=== PATIENT | female | born 1950 | race Caucasian/White ===

== ENCOUNTER 2016-08-19 22:07 | Inpatient (IN) ==
[2016-08-19] MEDS ORDERED: APRESOLINE IV ONE (22:52)
--- NOTE | 2016-08-19 22:52 | PROVIDER DOCUMENTATION ---
HPI-General Adult - General Chief Complaint: Fall Time Seen by Provider: 08/19/16 22:23 Source: patient Allergies/Adverse Reactions: Patient Allergies Allergy/AdvReac Type Severity Reaction Status Date / Time ketorolac tromethamine * AdvReac ABDOMINAL Verified 11/26/13 18:51 [From Toradol] PAIN Home Medications: Home Medication List Medication Instructions Recorded Confirmed Last Taken Type Lisinopril 40 mg PO DAILY #30 tablet 11/26/13 01/05/14 07/30/16 Rx Lisinopril 40 mg PO DAILY 12/01/13 01/02/14 07/30/16 History Ibuprofen [Motrin] 800 mg PO Q8H PRN PRN #20 tablet 01/02/14 07/30/16 Rx Omeprazole [Prilosec] 40 mg PO DAILY@0700 #20 capsule 01/02/14 07/30/16 Rx Tramadol HCl [Ultram] 50 mg PO Q6H PRN #20 tablet 01/05/14 07/30/16 Rx Diclofenac Na D.r. [Voltaren] 50 mg PO 4XDAY #20 tab 08/19/16 07/30/16 Rx Lisinopril [Zestril] 40 mg PO DAILY #30 tablet 08/19/16 07/30/16 Rx Metformin [Glucophage] 500 mg PO WBREAKFAST #30 tablet 08/19/16 07/30/16 Rx Omeprazole [Prilosec] 20 mg PO DAILY@0700 #30 capsule 08/19/16 07/30/16 Rx - History of Present Illness -Gen Adult Nature of Presenting Problems: 66 year old WF presents with c/o fall secondary to weakness. pt reports she was on the commode, attempted to stand, felt so weak, she was unable, fell striking her forehead on the sink, denies LOC. Pt was evaluated in this ED Yesterday for weakness/fall/hyperglycemia. Pt reports she has DM/HTN but has not taken her meds for nearly 2 years. Review of Systems - Adult - REVIEW OF SYSTEMS - ADULT Constitutional: reports: see nicolas URBINA. denies: chills, fever Eyes: reports: no symptoms reported. denies: discharge, blurred vision, double vision Ears, Nose, Mouth & Throat: reports: no symptoms reported. denies: ear discharge, ear pain, nose pain, loose teeth, throat pain, throat swelling Cardiovascular: reports: no symptoms reported. denies: chest pain, palpitations , syncope Respiratory: reports: no symptoms reported. denies: chronic cough, cough, shortness of breath, wheezing Gastrointestinal: reports: no symptoms reported. denies: abdominal pain, diarrhea, nausea, poor appetite, vomiting Genitourinary: reports: no symptoms reported. denies: dysuria, hematuria, urgency Musculoskeletal: reports: no symptoms reported. denies: bone pain, joint pain, joint swelling, neck pain Integumentary: reports: no symptoms reported. denies: hives, itching, skin sores/ulcer Neurological: reports: see HPI, dizziness/vertigo, headache/migraines, loss of balance, other (weakness). denies: ataxia, numbness, paresthesia, seizure, slurred speech, syncope, tremors Psychiatric: reports: no symptoms reported Endocrine: reports: no symptoms reported Hematologic/Lymphatic: reports: no symptoms reported Allergic/Immunologic: reports: no symptoms reported All Other Systems: Reviewed and Negative Past History - Adult - PAST MEDICAL HISTORY-ADULT Review of Records: reports: Old Records Reviewed, Nursing Assessment Review, Medications Reviewed, Social history reviewed & non-contributory. Major Childhood Illnesses: reports: denies history Cardiovascular: reports: HTN Respiratory: reports: denies history Gastrointestinal: reports: denies history Obstetrical/Gynecological: reports: denies history Genitourinary: reports: denies history Musculoskeletal: reports: arthritis, chronic pain Neurological: reports: denies history Endocrine/Immune: reports: Diabetes Diabetes Type: Type 2 Diabetes controlled by:: PO Meds Other Conditions: reports: denies history - PRIOR SURGERIES/PROCEDURES Surgical/Procedure History: reports: hysterectomy, tonsillectomy, orthopedic ( extremity), appendectomy, back/neck - IMMUNIZATION STATUS Childhood Immunizations: See Nurse Assessment Flu Vaccine: See Nurse Assessment - FAMILY HISTORY Family History: reviewed, not pertinent - SOCIAL HISTORY Smoking: denies, non-smoker Substance Use: none/never Alcohol Use Frequency: never Physical Exam-General - PHYSICAL EXAM-ADULT Initial Vital Signs Reviewed: Yes - CONSTITUTIONAL General Appearance: appears well, alert, no apparent distress, obese, other ( discheveled, poor hygiene, smells of urine/feces). negative: mild distress, moderate distress, severe distress - EYES Eyes: PERRL/EOMI, pink conjunctivae. negative: EOM palsy, photophobia, sclera injected, scleral icterus, subconjunctival hemorrhage - HEAD, EARS, NOSE, MOUTH & THROAT HENMT: normocephalic/atraumatic, moist mucous membranes, normal ENT inspection, TMs normal, pharynx normal - NECK Neck: non-tender, full range of motion, supple, normal inspection. negative: C- spine tenderness, limited range of motion, tender lateral, tender midline - RESPIRATORY Respiratory: chest non-tender, lungs clear, normal breath sounds, no pleuratic chest pain, no respiratory distress, no accessory muscle use. negative: respiratory distress, decreased breath sounds, accessory muscle use, crackles, rales, rhonchi, stridor, wheezing - CARDIOVASCULAR Cardiovascular: normal peripheral pulses, regular rate, rhythm - GASTROINTESTINAL (ABDOMEN) Abdominal Exam: normal bowel sounds, non tender, soft - MUSCULOSKELETAL Back Exam: normal inspection, no CVA tenderness, no vertebral tenderness. negative: CVA tenderness, decreased range of motion, swelling, vertebral tenderness Extremity: normal range of motion, non-tender, normal gait, normal inspection, no pedal edema, no calf tenderness, normal capillary refill. negative: deformity, erythema, swelling, tenderness Peripheral Pulses: radial (R): 3+, radial (L): 3+, dorsalis-pedis (R): 3+, dorsalis-pedis (L): 3+ - SKIN Integumentary: normal color, normal turgor, warm/dry. negative: pallor, petechiae, purpura, rash, swelling, tenderness - NEUROLOGIC Neurologic: grossly normal, no motor/sensory deficits - PSYCHIATRIC Psych/Mental Status: normal mood/affect, normal thought content, normal thought process, oriented x 3 Progress - PLAN OF CARE/RESULTS Progress/Plan/Lab Results: Vital Signs - 8 hr 08/19/16 22:08 Temperature 97.0 F L Pulse Rate 104 H Respiratory Rate 18 Blood Pressure 206/115 O2 Sat by Pulse Oximetry 99 Laboratory Results - last 24 hr 08/19/16 22:09 POC Glucose 412 H Orders Category Date Time Status Orthostatic Vital Signs NOW Care 08/19/16 22:51 Ordered Saline Loc NOW Care 08/19/16 22:49 Ordered CHEST-2 VIEWS [RAD] Stat Exams 08/19/16 22:49 Ordered FACIAL BONES W/O CONTRAST [CT] Stat Exams 08/19/16 22:50 Ordered HEAD/C-SPINE W/O CONTRAST [CT] Stat Exams 08/19/16 22:50 Ordered ACETONE SERUM [CHEM] Stat Lab 08/19/16 22:51 Ordered CBC WITH ELECTRONIC DIFF [HEME] Stat Lab 08/19/16 22:49 Ordered CK PROFILE [SP CHEM] Stat Lab 08/19/16 22:49 Ordered COMPREHENSIVE METABOLIC PANEL [CHEM] Stat Lab 08/19/16 22:49 Ordered MAGNESIUM [CHEM] Stat Lab 08/19/16 22:49 Ordered PRO B-NATRIURETIC PEPTIDE Stat Lab 08/19/16 22:49 Ordered PROTIME WITH INR PL [COAG] Stat Lab 08/19/16 22:[address] [COAG] Stat Lab 08/19/16 22:49 Ordered TROPONIN T Stat Lab 08/19/16 22:49 Ordered UA NIMS W/REFLEX CULT PL [URINALYSIS] Stat Lab 08/19/16 22:51 Ordered Hydralazine [Apresoline] Med 08/19/16 22:52 Once 10 mg IV NOW ONE EKG [EKG] Stat Ther 08/19/16 22:49 Ordered Laboratory Tests 08/19/16 08/19/16 08/19/16 22:09 22:25 23:40 WBC RBC Hgb Hct MCV MCH MCHC RDW Std Deviation Plt Count MPV Immature Gran % (Auto) Neut % (Auto) Lymph % (Auto) Bland % (Auto) Eos % (Auto) Baso % (Auto) Immature Gran # (Auto) Neut # (Auto) Lymph # (Auto) Bland # (Auto) Eos # (Auto) Baso # (Auto) PT INR APTT (Factor Assay) Sodium 133 L Potassium 3.8 Chloride 92 L Carbon Dioxide 25 Anion Gap 16 BUN 13 Creatinine 0.6 Estimated GFR/1.73 m2 > 60 BUN/Creatinine Ratio 22 Glucose 406 H* POC Glucose 412 H Calculated Osmolality 284 Calcium 10.1 Magnesium 1.7 Total Bilirubin 0.20 AST 16 ALT 11 Alkaline Phosphatase 97 Creatine Kinase 112 Troponin T Fsw-A-Sbqegxnsdfk Pept Total Protein 8.0 Albumin 4.6 Globulin 3.0 Albumin/Globulin Ratio 1.0 Urine Source CLEAN CATCH Urine Color YELLOW Urine Clarity CLEAR Urine pH 7.0 Ur Specific [place] 1.005 Urine Protein 2+(100 mg/dL) A Urine Ketones NEGATIVE Urine Blood NEGATIVE Urine Nitrite NEGATIVE Urine Bilirubin NEGATIVE Urine Urobilinogen NORMAL Urine Microscopic RBC <10 Urine WBC NEGATIVE Urine Microscopic WBC <10 Ur Epithelial Cells <10 Urine Bacteria NEGATIVE Urine Glucose 3+(500 mg/dL) A Acetone Level 08/19/16 08/19/16 08/19/16 23:40 23:40 23:40 WBC 10.25 RBC 4.41 Hgb 13.1 Hct 39.9 MCV 90.5 MCH 29.7 MCHC 32.8 L RDW Std Deviation 13.6 Plt Count 257 MPV 11.9 H Immature Gran % (Auto) 0.4 Neut % (Auto) 61.1 Lymph % (Auto) 28.1 Bland % (Auto) 5.9 Eos % (Auto) 3.9 Baso % (Auto) 0.6 Immature Gran # (Auto) 0.04 Neut # (Auto) 6.27 Lymph # (Auto) 2.88 Bland # (Auto) 0.60 H Eos # (Auto) 0.40 Baso # (Auto) 0.06 PT INR APTT (Factor Assay) Sodium Potassium Chloride Carbon Dioxide Anion Gap BUN Creatinine Estimated GFR/1.73 m2 BUN/Creatinine Ratio Glucose POC Glucose Calculated Osmolality Calcium Magnesium Total Bilirubin AST ALT Alkaline Phosphatase Creatine Kinase Troponin T < 0.010 Ugu-Y-Brzhvmdhgbc Pept 215 Total Protein Albumin Globulin Albumin/Globulin Ratio Urine Source Urine Color Urine Clarity Urine pH Ur Specific [place] Urine Protein Urine Ketones Urine Blood Urine Nitrite Urine Bilirubin Urine Urobilinogen Urine Microscopic RBC Urine WBC Urine Microscopic WBC Ur Epithelial Cells Urine Bacteria Urine Glucose Acetone Level 08/19/16 08/19/16 23:40 23:40 WBC RBC Hgb Hct MCV MCH MCHC RDW Std Deviation Plt Count MPV Immature Gran % (Auto) Neut % (Auto) Lymph % (Auto) Bland % (Auto) Eos % (Auto) Baso % (Auto) Immature Gran # (Auto) Neut # (Auto) Lymph # (Auto) Bland # (Auto) Eos # (Auto) Baso # (Auto) PT 12.2 INR 0.87 APTT (Factor Assay) 32.5 Sodium Potassium Chloride Carbon Dioxide Anion Gap BUN Creatinine Estimated GFR/1.73 m2 BUN/Creatinine Ratio Glucose POC Glucose Calculated Osmolality Calcium Magnesium Total Bilirubin AST ALT Alkaline Phosphatase Creatine Kinase Troponin T Ktv-T-Cxzpyabrjsa Pept Total Protein Albumin Globulin Albumin/Globulin Ratio Urine Source Urine Color Urine Clarity Urine pH Ur Specific [place] Urine Protein Urine Ketones Urine Blood Urine Nitrite Urine Bilirubin Urine Urobilinogen Urine Microscopic RBC Urine WBC Urine Microscopic WBC Ur Epithelial Cells Urine Bacteria Urine Glucose Acetone Level NEGATIVE Orders Category Date Time Status Admit - [facility] Routine AdmDCTranf 08/20/16 01:12 Ordered Call Admitting on Arrival AT ADMISSION Care 08/20/16 01:13 Active Neurological Check Q4H Care 08/20/16 01:13 Active Saline Loc NOW Care 08/19/16 22:49 Active Vital Signs Order ORDERED Care 08/20/16 01:12 Active CHEST-2 VIEWS [RAD] Stat Exams 08/19/16 22:49 Taken FACIAL BONES W/O CONTRAST [CT] Stat Exams 08/19/16 22:50 Taken HEAD/C-SPINE W/O CONTRAST [CT] Stat Exams 08/19/16 22:50 Taken A1C HGB W EST AVG GLUCOSE [CHEM] Stat Lab 08/20/16 01:11 Ordered ACETONE SERUM [CHEM] Stat Lab 08/19/16 23:40 Completed ALCOHOL BLOOD Stat Lab 08/20/16 01:10 Ordered BLOOD CULTURE [BLDCUL] Stat Lab 08/20/16 01:11 Uncollected CBC WITH ELECTRONIC DIFF [HEME] Stat Lab 08/19/16 23:40 Completed CK PROFILE [SP CHEM] Stat Lab 08/19/16 23:40 Completed CK PROFILE [SP CHEM] Stat Lab 08/20/16 02:00 Ordered CK PROFILE [SP CHEM] Stat Lab 08/20/16 04:00 Ordered COMPREHENSIVE METABOLIC PANEL [CHEM] Stat Lab 08/19/16 23:40 Completed FREE T4 Stat Lab 08/20/16 01:10 Ordered LACTATE, PLASMA [CHEM] Stat Lab 08/20/16 01:11 Uncollected MAGNESIUM [CHEM] Stat Lab 08/19/16 23:40 Completed PRO B-NATRIURETIC PEPTIDE Stat Lab 08/19/16 23:40 Completed PROTIME WITH INR PL [COAG] Stat Lab 08/19/16 23:[address] [COAG] Stat Lab 08/19/16 23:40 Completed TROPONIN T Stat Lab 08/19/16 23:40 Completed TROPONIN T Stat Lab 08/20/16 02:00 Ordered TROPONIN T Stat Lab 08/20/16 04:00 Ordered TSH Stat Lab 08/20/16 01:10 Ordered UA NIMS W/REFLEX CULT PL [URINALYSIS] Stat Lab 08/19/16 22:25 Completed UDS [URINE DRUG SCREEN PL] Stat Lab 08/20/16 01:04 Ordered VITAMIN B12 Stat Lab 08/20/16 01:10 Ordered 0.9% Sodium Chloride Inj [Ns] 1,000 ml Med 08/20/16 01:05 Active IV 999 mls/hr Acetaminophen [Tylenol] Med 08/20/16 00:31 Discontinued 650 mg PO NOW ONE Hydralazine [Apresoline] Med 08/19/16 22:52 Discontinued 10 mg IV NOW ONE Hydralazine [Apresoline] Med 08/20/16 00:56 Discontinued 10 mg IV NOW ONE Insulin Human Regular [Humulin R] Med 08/20/16 01:05 Discontinued 3 unit IV NOW ONE Telemetry [OM.EQ] Routine Oth 08/20/16 01:12 Active EKG [EKG] Stat Ther 08/19/16 22:49 Draft Transfer/Admit Order [TRANSFER] Routine Transfer 08/20/16 01:15 Ordered Vital Signs - 24 hr 08/19/16 22:08 08/20/16 00:13 Temperature 97.0 F L 98.2 F Pulse Rate 104 H 108 H Respiratory Rate 18 20 Blood Pressure 206/115 194/111 O2 Sat by Pulse Oximetry 99 100 Vital Signs - 24 hr 08/19/16 22:08 08/20/16 00:13 08/20/16 01:40 Temperature 97.0 F L 98.2 F 97.5 F L Pulse Rate 104 H 108 H 104 H Respiratory Rate 18 20 16 Blood Pressure 206/115 194/111 147/92 O2 Sat by Pulse Oximetry 99 100 99 Orders Category Date Time Status Admit - [facility] Routine AdmDCTranf 08/20/16 01:12 Ordered Call Admitting on Arrival AT ADMISSION Care 08/20/16 01:13 Active Neurological Check Q4H Care 08/20/16 01:13 Active Saline Loc NOW Care 08/19/16 22:49 Active Vital Signs Order ORDERED Care 08/20/16 01:12 Active Diabetic Diet Diet 08/20/16 02:13 Ordered Heart Healthy Diet Diet 08/20/16 02:13 Completed CHEST-2 VIEWS [RAD] Stat Exams 08/19/16 22:49 Taken FACIAL BONES W/O CONTRAST [CT] Stat Exams 08/19/16 22:50 Taken HEAD/C-SPINE W/O CONTRAST [CT] Stat Exams 08/19/16 22:50 Taken A1C HGB W EST AVG GLUCOSE [CHEM] Stat Lab 08/20/16 01:40 Completed ACETONE SERUM [CHEM] Stat Lab 08/19/16 23:40 Completed ALCOHOL BLOOD Stat Lab 08/20/16 01:10 Completed BLOOD CULTURE [BLDCUL] Stat Lab 08/20/16 01:11 Ordered CBC WITH ELECTRONIC DIFF [HEME] Stat Lab 08/19/16 23:40 Completed CK PROFILE [SP CHEM] Stat Lab 08/19/16 23:40 Completed CK PROFILE [SP CHEM] Stat Lab 08/20/16 01:40 Received CK PROFILE [SP CHEM] Stat Lab 08/20/16 04:00 Ordered COMPREHENSIVE METABOLIC PANEL [CHEM] Stat Lab 08/19/16 23:40 Completed FREE T4 Stat Lab 08/20/16 01:40 Received LACTATE, PLASMA [CHEM] Stat Lab 08/20/16 01:11 Ordered MAGNESIUM [CHEM] Stat Lab 08/19/16 23:40 Completed PRO B-NATRIURETIC PEPTIDE Stat Lab 08/19/16 23:40 Completed PROTIME WITH INR PL [COAG] Stat Lab 08/19/16 23:[address] [COAG] Stat Lab 08/19/16 23:40 Completed TROPONIN T Stat Lab 08/19/16 23:40 Completed TROPONIN T Stat Lab 08/20/16 01:40 Received TROPONIN T Stat Lab 08/20/16 04:00 Ordered TSH Stat Lab 08/20/16 01:40 Received UA NIMS W/REFLEX CULT PL [URINALYSIS] Stat Lab 08/19/16 22:25 Completed UDS [URINE DRUG SCREEN PL] Stat Lab 08/20/16 01:04 Completed VITAMIN B12 Stat Lab 08/20/16 01:40 Received 0.9% Sodium Chloride Inj [Ns] 1,000 ml Med 08/20/16 01:05 Discontinued IV 999 mls/hr Acetaminophen [Tylenol] Med 08/20/16 00:31 Discontinued 650 mg PO NOW ONE Hydralazine [Apresoline] Med 08/19/16 22:52 Discontinued 10 mg IV NOW ONE Hydralazine [Apresoline] Med 08/20/16 00:56 Discontinued 10 mg IV NOW ONE Insulin Human Regular (Bostic [Humulin R (Bostic)] Med 08/20/16 01:23 Discontinued 1 units .ROUTE .STK-MED ONE Insulin Human Regular [Humulin R] Med 08/20/16 01:05 Discontinued 3 unit IV NOW ONE Telemetry [OM.EQ] Routine Oth 08/20/16 01:12 Active EKG [EKG] Stat Ther 08/19/16 22:49 Draft Transfer/Admit Order [TRANSFER] Routine Transfer 08/20/16 01:15 Completed Laboratory Tests 08/19/16 08/19/16 08/19/16 22:09 22:25 22:25 WBC RBC Hgb Hct MCV MCH MCHC RDW Std Deviation Plt Count MPV Immature Gran % (Auto) Neut % (Auto) Lymph % (Auto) Bland % (Auto) Eos % (Auto) Baso % (Auto) Immature Gran # (Auto) Neut # (Auto) Lymph # (Auto) Bland # (Auto) Eos # (Auto) Baso # (Auto) PT INR APTT (Factor Assay) Sodium Potassium Chloride Carbon Dioxide Anion Gap BUN Creatinine Estimated GFR/1.73 m2 BUN/Creatinine Ratio Glucose POC Glucose 412 H Estimat Average Glucose Hemoglobin A1c Calculated Osmolality Calcium Magnesium Total Bilirubin AST ALT Alkaline Phosphatase Creatine Kinase Troponin T Lbh-C-Jqdcujmiktd Pept Total Protein Albumin Globulin Albumin/Globulin Ratio Urine Source CLEAN CATCH Urine Color YELLOW Urine Clarity CLEAR Urine pH 7.0 Ur Specific [place] 1.005 Urine Protein 2+(100 mg/dL) A Urine Ketones NEGATIVE Urine Blood NEGATIVE Urine Nitrite NEGATIVE Urine Bilirubin NEGATIVE Urine Urobilinogen NORMAL Urine Microscopic RBC <10 Urine WBC NEGATIVE Urine Microscopic WBC <10 Ur Epithelial Cells <10 Urine Bacteria NEGATIVE Urine Glucose 3+(500 mg/dL) A Urine Opiates Screen PRESUMPTIVE POSITIVE A Ur Oxycodone Screen NONE DETECTED Urine Methadone Screen NONE DETECTED Ur Barbituates Screen NONE DETECTED Ur Tricyclics Screen NONE DETECTED Ur Phencyclidine Scrn NONE DETECTED Ur Amphetamines Screen NONE DETECTED U Methamphetamines Scrn NONE DETECTED Urine MDMA Screen NONE DETECTED U Benzodiazepines Scrn PRESUMPTIVE POSITIVE A Urine Cocaine Screen NONE DETECTED U Cannabinoids Screen NONE DETECTED Plasma/Serum Ethyl Alc Acetone Level 08/19/16 08/19/16 08/19/16 23:40 23:40 23:40 WBC RBC Hgb Hct MCV MCH MCHC RDW Std Deviation Plt Count MPV Immature Gran % (Auto) Neut % (Auto) Lymph % (Auto) Bland % (Auto) Eos % (Auto) Baso % (Auto) Immature Gran # (Auto) Neut # (Auto) Lymph # (Auto) Bland # (Auto) Eos # (Auto) Baso # (Auto) PT INR APTT (Factor Assay) Sodium 133 L Potassium 3.8 Chloride 92 L Carbon Dioxide 25 Anion Gap 16 BUN 13 Creatinine 0.6 Estimated GFR/1.73 m2 > 60 BUN/Creatinine Ratio 22 Glucose 406 H* POC Glucose Estimat Average Glucose Hemoglobin A1c Calculated Osmolality 284 Calcium 10.1 Magnesium 1.7 Total Bilirubin 0.20 AST 16 ALT 11 Alkaline Phosphatase 97 Creatine Kinase 112 Troponin T < 0.010 Ltq-Q-Etotbltivme Pept 215 Total Protein 8.0 Albumin 4.6 Globulin 3.0 Albumin/Globulin Ratio 1.0 Urine Source Urine Color Urine Clarity Urine pH Ur Specific [place] Urine Protein Urine Ketones Urine Blood Urine Nitrite Urine Bilirubin Urine Urobilinogen Urine Microscopic RBC Urine WBC Urine Microscopic WBC Ur Epithelial Cells Urine Bacteria Urine Glucose Urine Opiates Screen Ur Oxycodone Screen Urine Methadone Screen Ur Barbituates Screen Ur Tricyclics Screen Ur Phencyclidine Scrn Ur Amphetamines Screen U Methamphetamines Scrn Urine MDMA Screen U Benzodiazepines Scrn Urine Cocaine Screen U Cannabinoids Screen Plasma/Serum Ethyl Alc Acetone Level 08/19/16 08/19/16 08/19/16 23:40 23:40 23:40 WBC 10.25 RBC 4.41 Hgb 13.1 Hct 39.9 MCV 90.5 MCH 29.7 MCHC 32.8 L RDW Std Deviation 13.6 Plt Count 257 MPV 11.9 H Immature Gran % (Auto) 0.4 Neut % (Auto) 61.1 Lymph % (Auto) 28.1 Bland % (Auto) 5.9 Eos % (Auto) 3.9 Baso % (Auto) 0.6 Immature Gran # (Auto) 0.04 Neut # (Auto) 6.27 Lymph # (Auto) 2.88 Bland # (Auto) 0.60 H Eos # (Auto) 0.40 Baso # (Auto) 0.06 PT 12.2 INR 0.87 APTT (Factor Assay) 32.5 Sodium Potassium Chloride Carbon Dioxide Anion Gap BUN Creatinine Estimated GFR/1.73 m2 BUN/Creatinine Ratio Glucose POC Glucose Estimat Average Glucose Hemoglobin A1c Calculated Osmolality Calcium Magnesium Total Bilirubin AST ALT Alkaline Phosphatase Creatine Kinase Troponin T [id number]-Mbvwijcqwfx Pept Total Protein Albumin Globulin Albumin/Globulin Ratio Urine Source Urine Color Urine Clarity Urine pH Ur Specific [place] Urine Protein Urine Ketones Urine Blood Urine Nitrite Urine Bilirubin Urine Urobilinogen Urine Microscopic RBC Urine WBC Urine Microscopic WBC Ur Epithelial Cells Urine Bacteria Urine Glucose Urine Opiates Screen Ur Oxycodone Screen Urine Methadone Screen Ur Barbituates Screen Ur Tricyclics Screen Ur Phencyclidine Scrn Ur Amphetamines Screen U Methamphetamines Scrn Urine MDMA Screen U Benzodiazepines Scrn Urine Cocaine Screen U Cannabinoids Screen Plasma/Serum Ethyl Alc Acetone Level NEGATIVE 08/19/16 08/20/16 23:40 01:40 WBC RBC Hgb Hct MCV MCH MCHC RDW Std Deviation Plt Count MPV Immature Gran % (Auto) Neut % (Auto) Lymph % (Auto) Bland % (Auto) Eos % (Auto) Baso % (Auto) Immature Gran # (Auto) Neut # (Auto) Lymph # (Auto) Bland # (Auto) Eos # (Auto) Baso # (Auto) PT INR APTT (Factor Assay) Sodium Potassium Chloride Carbon Dioxide Anion Gap BUN Creatinine Estimated GFR/1.73 m2 BUN/Creatinine Ratio Glucose POC Glucose Estimat Average Glucose 217 Hemoglobin A1c 9.2 H Calculated Osmolality Calcium Magnesium Total Bilirubin AST ALT Alkaline Phosphatase Creatine Kinase Troponin T Fph-K-Quisnrxygsd Pept Total Protein Albumin Globulin Albumin/Globulin Ratio Urine Source Urine Color Urine Clarity Urine pH Ur Specific [place] Urine Protein Urine Ketones Urine Blood Urine Nitrite Urine Bilirubin Urine Urobilinogen Urine Microscopic RBC Urine WBC Urine Microscopic WBC Ur Epithelial Cells Urine Bacteria Urine Glucose Urine Opiates Screen Ur Oxycodone Screen Urine Methadone Screen Ur Barbituates Screen Ur Tricyclics Screen Ur Phencyclidine Scrn Ur Amphetamines Screen U Methamphetamines Scrn Urine MDMA Screen U Benzodiazepines Scrn Urine Cocaine Screen U Cannabinoids Screen Plasma/Serum Ethyl Alc 0 Acetone Level Result Diagrams: 08/19/16 23:40 08/19/16 23:40 - REASSESSMENT Reassessment #2 Time Reassessed: 00:40 Status: other (Dr. Snyder found patient in the [place] controlled substance database as being prescribed suboxone. Reviewed case/radiology/H7P with Dr. Snyder , will admit for fall risk. Notified patient, her story has changed, she now admits to taking some medications: suboxone adn others.) - CONSULTS/PCP/HOSPITALIST Notification #1 *Consult/PCP/Hospitalist*: Dr. Molina Time Discussed: 00:45 Consult Disposition: Admit Departure - Departure Time of Disposition Decision: 23:40 DIAGNOSIS: Hyperglycemia, Weakness Hypertension Qualifiers: Hypertension type: essential hypertension Qualified Code(s): I10 - Essential ( primary) hypertension Fall Qualifiers: Encounter type: initial encounter Qualified Code(s): W19.XXXA - Unspecified fall, initial encounter Disposition: HOME 01 Certified Medical Emergency: Emergent Condition: Stable - Critical Care Note This patient required my direct & personal management of CC.: No Attestation - Physician/ JUDITH Attestation Patient care was provided by Advanced Practice Provider:: Yes Advanced Practice Provider:: Yunior Weaver Advanced Practice Provider documentation review:: The Mid-level provider documentation, treatment plan and medical decision making was reviewed by the physician who agrees with all treatment and medical decision making by the MLP.
[2016-08-19 23:24] LABS: URINE CULTURE PL NEEDED? NO
[2016-08-19 23:52] LABS: MANUAL DIFF NEEDED? NO
[2016-08-19 23:56] LABS: BILIRUBIN URINE NEGATIVE (NEGATIVE); BLOOD URINE NEGATIVE (NEGATIVE); CLARITY CLEAR (CLEAR); COLOR YELLOW; LEUKOCYTES URINE NEGATIVE (NEGATIVE); NITRITE URINE NEGATIVE (NEGATIVE); PROTEIN URINE 2+(100 mg/dL) mg/dL (NEGATIVE); SP GRAVITY URINE 1.005; URINE EPITHELIAL CELLS <10 /HPF (<10); URINE RBC <10 /HPF (<10); URINE SOURCE CLEAN CATCH; URINE WBC <10 /HPF (<10); UROBILINOGEN URINE NORMAL
[2016-08-20 00:15] LABS: BASO% 0.6 % (0.0-0.8); EOS% 3.9 % (0.0-10.0); HEMATOCRIT 39.9 % (37.0-47.0); HEMOGLOBIN 13.1 g/dL (12.0-16.0); IMM GRAN# 0.04 X1000 (0.0-0.04); IMM GRAN% 0.4 % (0.0-0.5); LYMPH# 2.88 X1000 (1.2-3.4); LYMPH% 28.1 % (20.5-51.1); MCH 29.7 PG (27-31); MCHC 32.8 g/dL (33-37); MCV 90.5 FL (81-99); MONO% 5.9 % (1.7-9.3); MPV 11.9 FL (7.4-10.4); NEUT% 61.1 % (42.2-75.2); PLT 257 X1000 (130-400); RBC 4.41 XMIL (4.2-5.4)
[2016-08-20 00:20] LABS: INR 0.87 (0.86-1.15); PROTIME 12.2 Seconds (12.1-15.5); PTT PL 32.5 Seconds (22.6-43.9)
[2016-08-20] MEDS ORDERED: TYLENOL PO ONE (00:31)
--- NOTE | 2016-08-20 00:38 | EKG Report ---
Test Performed on : 08/19/2016 11:35:19 PM Test Reason : CHEST PAIN Blood Pressure : / mmHG Vent. Rate : 099 BPM Atrial Rate : 099 BPM P-R Int : 172 ms QRS Dur : 084 ms QT Int : 370 ms P-R-T Axes : -15 011 065 degrees QTc Int : 474 ms Normal sinus rhythm. Normal ECG No previous ECGs available Unconfirmed Result
[2016-08-20 00:49] LABS: AGAP 16; ALBUMIN 4.6 g/dL (3.5-5.0); ALKALINE PHOSPHATASE 97 U/L (32-104); BUN 13 mg/dL (8-22); CALCIUM 10.1 mg/dL (8.8-10.2); CHLORIDE 92 mmol/L (98-107); CK PROFILE 112 U/L (24-173); COSMO 284; GOT 16 U/L (10-30); GPT 11 U/L (10-36); MAGNESIUM 1.7 mg/dL (1.5-2.7); POTASSIUM 3.8 mmol/L (3.5-5.1); SODIUM 133 mmol/L (136-145); TCO2 25 mmol/L (25-35)
[2016-08-20] MEDS ORDERED: APRESOLINE IV ONE ×2 (00:56→04:50)
[2016-08-20] MEDS ORDERED: HUMULIN R IV ONE (01:05)
[2016-08-20] MEDS ORDERED: NS 1,000 ML IV ONE (01:05)
[2016-08-20] MEDS ORDERED: HUMULIN R (PARKWAY) ONE (01:23)
[2016-08-20 01:51] LABS: UR AMPHETAMINES QUAL NONE DETECTED (NONE DETECT); UR BARBITUATES QUAL NONE DETECTED (NONE DETECT); UR BENZODIAZEPIN QUAL PRESUMPTIVE POSITIVE (NONE DETECT); UR CANNABINOIDS QUAL NONE DETECTED (NONE DETECT); UR COCAINE QUAL NONE DETECTED (NONE DETECT); UR MDMA QUAL NONE DETECTED (NONE DETECT); UR METHADONE QUAL NONE DETECTED (NONE DETECT); UR METHAMPHETAMINE QUAL NONE DETECTED (NONE DETECT); UR OPIATES QUAL PRESUMPTIVE POSITIVE (NONE DETECT); UR OXYCODONE QUAL NONE DETECTED (NONE DETECT); UR PCP QUAL NONE DETECTED (NONE DETECT); UR TCA QUAL NONE DETECTED (NONE DETECT)
[2016-08-20 02:00] LABS: HEMOGLOBIN A1C 9.2 % (4.8-6.0)
[2016-08-20 02:48] LABS: FREE T4 1.01 ng/dL (0.93-1.70)
[2016-08-20] MEDS ORDERED: NORCO-5 PO PRN (04:49)
[2016-08-20] MEDS ORDERED: HUMALOG (PARKWAY) SUBQ SCH (07:00)
--- NOTE | 2016-08-20 09:55 | Diag Imaging Result Document ---
PROCEDURE NAME: CHEST-2 VIEWS - 08/19/2016 PA AND LATERAL RADIOGRAPH OF THE CHEST: COMPARISON: None available. FINDINGS: The lungs are grossly clear. There is no discrete pleural fluid collection or evidence of pneumothorax. The cardiomediastinal silhouette and upper airway are grossly unremarkable. IMPRESSION: No evidence of acute chest pathology.
[2016-08-20] MEDS ORDERED: ROCEPHIN 1 GM/NS 1 GM/50 ML IVPB IV SCH (10:00)
--- NOTE | 2016-08-20 10:19 | Diag Imaging Result Document ---
PROCEDURE NAME: HEAD/C-SPINE W/O CONTRAST - 08/19/2016 CT HEAD AND C-SPINE WITHOUT CONTRAST: COMPARISON: None available. FINDINGS: HEAD: There is no discrete intracranial mass, mass effect, or intracranial hemorrhage. There is no evidence of acute infarct. There is no evidence of hydrocephalus. There is a prominent hematoma involving the scalp frontally on the left. The calvaria is grossly intact. C-SPINE: There is a subtle linear lucency seen on the axial images involving the lateral mass of C1 on the left. This is not confirmed on the other reformatted images. It is highly likely that this is a nutrient channel rather than a fracture. There is fairly extensive degenerative disk disease at multiple cervical levels, worst at and below C3-4. There is extensive right facet arthropathy at C4-5 causing mild anterolisthesis. These degenerative changes are causing some degree of central canal and foraminal narrowing at multiple levels. This appears chronic. There is no evidence of fracture, acute subluxation, or intrinsic osseous lesion, otherwise. Surrounding soft tissues are essentially unremarkable. IMPRESSION: 1. No evidence of acute intracranial pathology. 2. Prominent scalp hematoma anteriorly on the left. 3. Extensive multilevel degenerative arthropathy but no definite fracture or other definite acute C-spine injury.
--- NOTE | 2016-08-20 10:22 | Diag Imaging Result Document ---
PROCEDURE NAME: FACIAL BONES W/O CONTRAST - 08/19/2016 CT OF THE FACIAL BONES WITHOUT CONTRAST: COMPARISON: None available. FINDINGS: There is no evidence of facial bone fracture or dislocation. Specifically, the orbits are intact. The globes are intact. There is no evidence of retrobulbar hematoma. There is a prominent scalp hematoma involving the forehead on the left superior to the left orbit. The paranasal sinuses are clear. The mastoid air cells are clear. Otherwise, surrounding soft tissues are grossly unremarkable. IMPRESSION: No evidence of facial bone fracture.
[2016-08-20] MEDS: HUMALOG DOSE (PARKWAY) SUBQ SCH ×3 (11:14→22:18)
[2016-08-20] MEDS: GLUCOPHAGE PO SCH ×2 (11:26→16:14)
[2016-08-20] MEDS ORDERED: XYLOCAINE-MPF 1% INJ SCH (17:27)
[2016-08-20] MEDS: TYLENOL PO PRN ×2 (17:33→22:18)
[2016-08-20] MEDS ORDERED: ZOFRAN ODT PO PRN (17:40)
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
[2016-08-20] MEDS ORDERED: XANAX PO ONE (21:00)
[2016-08-21] MEDS: TYLENOL PO PRN (02:13)
[2016-08-21] MEDS: PERCOCET-5 PO PRN ×3 (03:25→13:06)
[2016-08-21] MEDS: HUMALOG DOSE (PARKWAY) SUBQ SCH ×3 (06:10→16:03)
--- NOTE | 2016-08-21 06:41 | Diag Imaging Result Document ---
PROCEDURE NAME: TRAUMA SHOULDER LEFT - 08/21/2016 LEFT SHOULDER FOUR VIEWS INCLUDING AN AXILLARY Y AND ROTATION VIEWS: FINDINGS: There is a fracture to the distal clavicle. Minimal superior orientation with the acromion. No fracture to the humerus or humeral head dislocation. IMPRESSION: Fracture to the distal clavicle with minimal separation at the acromioclavicular joint.
[2016-08-21] MEDS: GLUCOPHAGE PO SCH ×3 (08:11→16:17)
[2016-08-21] MEDS ORDERED: PRINIVIL PO SCH (09:00)
[2016-08-21] MEDS ORDERED: ROCEPHIN IM SCH (10:00)
[2016-08-21 16:10] VITALS: BP 95/57
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
== END 2016-08-21 18:20 | disposition left against medical advice (07) ==
LOC: P.ED 22:07 → P.MEDSURG 08-20 01:26 → SUATTDRO 08-20 01:26
PROVIDERS: ADMIT Family Medicine

== ENCOUNTER 2018-09-16 09:43 | Inpatient (IN) ==
--- NOTE | 2018-09-11 09:02 | EKG Report ---
Test Performed on : 09/11/2018 08:30:36 AM Test Reason : PAT Blood Pressure : / mmHG Vent. Rate : 073 BPM Atrial Rate : 074 BPM P-R Int : 000 ms QRS Dur : 082 ms QT Int : 380 ms P-R-T Axes : 000 021 057 degrees QTc Int : 418 ms Accelerated Junctional rhythm. Abnormal ECG When compared with ECG of 02-JAN-2018 21:17, Junctional rhythm. has replaced Sinus rhythm. Confirmed by Anup LONG, Jeff Guerrero ([id number]) on 09/12/2018 6:38:14 PM
[2018-09-11 09:17] LABS: BASO# 0.09 X1000 (0.0-0.2); EOS% 6.7 % (0.0-10.0); HEMATOCRIT 27.4 % (37.0-47.0); HEMOGLOBIN 8.2 g/dL (12.0-16.0); IMM GRAN# 0.05 X1000 (0.0-0.04); IMM GRAN% 0.6 % (0.0-0.5); LYMPH# 4.09 X1000 (1.2-3.4); LYMPH% 45.4 % (20.5-51.1); MCH 29.3 PG (27-31); MCHC 29.9 g/dL (33-37); MCV 97.9 FL (81-99); MONO# 0.59 X1000 (0.11-0.59); MONO% 6.6 % (1.7-9.3); MPV 11.8 FL (7.4-10.4); NEUT# 3.58 X1000 (1.4-6.5); NEUT% 39.7 % (42.2-75.2); PLT 267 X1000 (130-400)
[2018-09-11 09:35] LABS: INR 0.9; PROTIME 12.9 Seconds (11.0-16.0)
[2018-09-11 09:36] LABS: PTT 33.3 Seconds (22.3-41.8)
[2018-09-11 09:41] LABS: ALBUMIN 3.9 g/dL (3.5-5.0); CALCIUM 9.2 mg/dL (8.8-10.2); CREATININE 1.4 mg/dL (0.5-0.9); POTASSIUM 5.3 mmol/L (3.5-5.1)
[2018-09-11 10:03] LABS: HEMOGLOBIN A1C 5.4 % (4.8-6.0)
[2018-09-11 13:43] LABS: URINE SOURCE CLEAN CATCH
[2018-09-11 13:47] LABS: BILIRUBIN URINE NEGATIVE (NEGATIVE); BLOOD URINE NEGATIVE (NEGATIVE); COLOR STRAW; GLUCOSE URINE NEGATIVE (NEGATIVE); KETONE URINE NEGATIVE (NEGATIVE); LEUKOCYTES URINE SMALL (NEGATIVE); NITRITE URINE NEGATIVE (NEGATIVE); PH URINE 5.5; PROTEIN URINE TRACE mg/dL (NEGATIVE); TURBIDITY URINE CLEAR (CLEAR); UROBILINOGEN URINE NORMAL (NORMAL)
[2018-09-11 13:50] LABS: UR EPITHELIAL CELLS <10 /HPF (<10); URINE BACTERIA NEGATIVE /HPF; URINE RBC <10 /HPF (<10); URINE WBC <10 /HPF (<10)
[2018-09-16] MEDS ORDERED: PEPCID ONE (10:28)
[2018-09-16] MEDS ORDERED: COLACE ONE (10:28)
[2018-09-16] MEDS ORDERED: CELEBREX ONE (10:29)
[2018-09-16] MEDS ORDERED: KEFZOL 1 GM/D5W 2 GM/100 ML IVPB ONE (10:29)
[2018-09-16] MEDS ORDERED: REGLAN ONE (10:29)
[2018-09-16] MEDS ORDERED: LYRICA ONE (10:29)
[2018-09-16] MEDS ORDERED: LR 1,000 ML ONE (10:30)
[2018-09-16 10:56] LABS: CALCIUM 9.4 mg/dL (8.8-10.2); CREATININE 1.4 mg/dL (0.5-0.9)
[2018-09-16] MEDS ORDERED: ZOFRAN ONE (12:03)
[2018-09-16] MEDS ORDERED: XYLOCAINE-MPF 2% ONE (12:03)
[2018-09-16] MEDS ORDERED: OFIRMEV 1000 MG/ISOTONIC SOLN 1,000 MG/100 ML BOTTLE ONE (12:03)
[2018-09-16] MEDS ORDERED: DECADRON ONE (12:03)
[2018-09-16] MEDS ORDERED: DIPRIVAN 1% 500 MG/50 ML BOTTLE ONE (12:03)
[2018-09-16] MEDS ORDERED: VERSED ONE (12:04)
[2018-09-16] MEDS ORDERED: FENTANYL ONE (12:04)
[2018-09-16] MEDS ORDERED: DURAMORPH ONE (12:20)
[2018-09-16] MEDS ORDERED: VANCOMYCIN ONE (12:21)
[2018-09-16] MEDS ORDERED: MARCAINE 0.25% PF/EPI 1:200,000 ONE (12:21)
[2018-09-16] MEDS ORDERED: EXPAREL 1.3% ONE (12:21)
[2018-09-16] MEDS ORDERED: SODIUM CHLORIDE 0.9% ONE (12:21)
[2018-09-16] MEDS ORDERED: NEOSPORIN G.U. IRRIGANT ONE (12:21)
[2018-09-16] MEDS ORDERED: TORADOL ONE (12:21)
[2018-09-16] MEDS: CYKLOKAPRON 1,000 MG/NS 2,000 MG/200 ML IVPB ONE ×2 (13:17→14:32)
[2018-09-16] MEDS ORDERED: DILAUDID ONE (13:27)
[2018-09-16 14:01] LABS: URINE SOURCE CATH
[2018-09-16 14:04] LABS: UR EPITHELIAL CELLS <10 /HPF (<10); URINE BACTERIA NEGATIVE /HPF; URINE RBC <10 /HPF (<10); URINE WBC <10 /HPF (<10)
[2018-09-16 14:05] LABS: BILIRUBIN URINE NEGATIVE (NEGATIVE); BLOOD URINE NEGATIVE (NEGATIVE); COLOR STRAW; GLUCOSE URINE NEGATIVE (NEGATIVE); KETONE URINE NEGATIVE (NEGATIVE); LEUKOCYTES URINE NEGATIVE (NEGATIVE); NITRITE URINE NEGATIVE (NEGATIVE); PROTEIN URINE NEGATIVE (NEGATIVE); TURBIDITY URINE CLEAR (CLEAR); UROBILINOGEN URINE NORMAL (NORMAL)
[2018-09-16] MEDS ORDERED: NS 1,000 ML ONE (15:12)
[2018-09-16] MEDS: DILAUDID ONE ×2 (15:31→15:36)
[2018-09-16] MEDS ORDERED: DILAUDID IV PRN ×2 (17:30)
[2018-09-16] MEDS ORDERED: MILK OF MAGNESIA PO PRN (17:30)
[2018-09-16] MEDS ORDERED: ZOFRAN IV PRN (17:30)
[2018-09-16] MEDS ORDERED: ZOFRAN ODT PO PRN (17:30)
[2018-09-16] MEDS: OXY IR PO PRN ×2 (17:41→21:05)
[2018-09-16] MEDS: NS 1,000 ML IV SCH ×2 (17:44→21:06)
--- NOTE | 2018-09-16 18:05 | OPERATIVE NOTE ---
PROCEDURE DATE: 09/16/2018 PREOPERATIVE DIAGNOSIS: Left knee degenerative joint disease. POSTOPERATIVE DIAGNOSIS: Left knee degenerative joint disease. PROCEDURE PERFORMED: Left total knee arthroplasty using [facility] size 5 femoral component, size 5 tibial base plate, a 16 mm articular insert, and a 35 mm patellar component. ANESTHESIA: Spinal. SURGEON: Salazar Irvin MD. CORN CUTTER OPERATOR: Yaritza Brewer PA-C, who was present throughout the case, whose assistance was critical for exposure, placement of the implant, and closure. Her assistance greatly reduced anesthesia and operative time and improved efficiency in the OR and was critical for success of the case. BLOOD LOSS: Minimal. DRAINS: Hemovac x1. COMPLICATIONS: None. TOURNIQUET TIME: Approximately an hour and a half. DESCRIPTION OF PROCEDURE: The patient was brought to the operative suite and placed in the supine position. After successful administration of general anesthesia, a well-padded tourniquet was placed on the left proximal thigh. Left lower extremity was prepped and draped in usual sterile fashion. Leg was exsanguinated. Tourniquet insufflated to 350 torr. A longitudinal incision was made beginning at the superior pole of the patella and extended distally to the tibia tuberosity. A medial arthrotomy was then made and the medial capsule was elevated off the medial tibial plateau. ACL, PCL, medial meniscus, and lateral meniscus were excised. A drill was entered in the center of the distal femur. An intramedullary guide was placed. Distal cutting block was pinned in place. Distal cut made with an oscillating saw. The attention was then directed to the tibia. After removing marginal osteophytes, the drill was entered in the center of the tibia. An intramedullary guide was placed. The line was checked with drop loretta referencing off the anterior cortex of the tibia and the second ray the foot, taking 4 mm off the low side of the tibia which in this case was medially. The tibial cutting block was pinned in place. The articular surface of the tibial plateau was removed with an oscillating saw. Extension gaps were balanced at 16 mm. Therefore, we set the flexion gap to 25 mm to account for the 9 mm of the posterior condyle of the femoral component. Once this was set and rotation was set, it was measured to a size 5. A size 5 cutting block was pinned in place in the proper rotation and the anterior cuts, chamfer cuts, and posterior condylar cuts were made with the oscillating saw. Marginal osteophytes were removed with a rongeur. Box cutting block was pinned in place. A box cut was made with a box osteotome and oscillating saw. Posterior condyle osteophytes removed with a curved osteotome and rongeur. Attention was then directed the tibia. Tibia was measured to a size 5. A size 5 guide was used for the fin punch. Tibial trial, femoral trial, and 16 mm articular insert placed and taken through range of motion and found to have excellent alignment, balancing, and range of motion. Attention was then directed to patella. Nine millimeters of the articular surface of the patella were removed with the oscillating saw. Patella sized to a size 35. A size 35 guide was used to drill peg holes. Lateral facet was chamfered 30 to 45 degrees. Patella trial was placed, taken through range of motion, and found to have excellent patella tracking. All trials were then removed. Knee was copiously irrigated and dried, being certain all bone debris was removed. The tibial component, femoral component, and patellar component were cemented into place, excess cement being removed with a [place]. Once the cement had hardened excess cement was again removed with an osteotome and was again copiously irrigated and dried, being certain all bone and cement debris was removed. The trial articular insert was removed. The knee was copiously infiltrated with Exparel, including posterior capsule, anterior capsule, medial and lateral collateral ligaments, intermuscular and subcutaneous tissue. The definitive articular insert was then locked into place and a drain was placed exiting superior laterally and buried in the lateral gutter. The knee was again copiously irrigated with normal saline containing irrigant and Vashe irrigation. The medial arthrotomy was closed with #1 Vicryl and 0 V-Loc suture and the skin edge approximated with 2-0 Vicryl and Prineo. Sterile dressing was applied. The patient tolerated the procedure well without complication. At the end the procedure, all counts correct x2. The patient was transferred to the recovery room in stable condition. cc: Salazar Irvin MD
[2018-09-16] MEDS: PATIENT'S OWN MED SL SCH (21:04)
[2018-09-16] MEDS: KEFZOL 2 GM/D5W 2 GM/50 ML IVPB IV SCH (21:04)
[2018-09-16] MEDS: CELEBREX PO SCH (21:05)
[2018-09-16] MEDS: NEURONTIN PO SCH (21:06)
[2018-09-16] MEDS: COLACE PO SCH (21:06)
[2018-09-16] MEDS: PERIDEX MT SCH (21:06)
[2018-09-16] MEDS: TYLENOL PO SCH (23:05)
[2018-09-16] MEDS: ULTRAM PO SCH (23:05)
[2018-09-17] MEDS: OXY IR PO PRN ×7 (03:37→22:53)
[2018-09-17] MEDS: KEFZOL 2 GM/D5W 2 GM/50 ML IVPB IV SCH (05:00)
[2018-09-17] MEDS: ULTRAM PO SCH ×3 (05:01→21:53)
[2018-09-17] MEDS: TYLENOL PO SCH ×3 (05:01→21:54)
[2018-09-17 05:56] LABS: HEMATOCRIT 22.9 % (37.0-47.0); HEMOGLOBIN 6.9 g/dL (12.0-16.0)
[2018-09-17] MEDS: PRILOSEC PO SCH (06:02)
[2018-09-17 06:08] LABS: CALCIUM 8.3 mg/dL (8.8-10.2); CREATININE 1.5 mg/dL (0.5-0.9); POTASSIUM 4.8 mmol/L (3.5-5.1)
[2018-09-17] MEDS: NS 1,000 ML IV SCH (06:58)
--- NOTE | 2018-09-17 08:55 | ORTHOPAEDICS PROGRESS NOTE ---
DATE: 09/17/2018 SUBJECTIVE: Ms. Gillespie is a 68-year-old female who is postoperative day 1 from a left total knee arthroplasty. She complains of some pain in her knee and also her low back. OBJECTIVE: General: She is a well-developed, well-nourished female. She is alert, oriented, and cooperative with the examination. She is in no acute distress. Extremities: Her left knee dressing is clean, dry, and intact. Her left leg is grossly neurovascularly intact. LABORATORY DATA: Her hemoglobin is. 6.9, her hematocrit is 22.9. She has had 40 mL of drainage from her Hemovac drain in the last 8 hours, which we have discontinued. ASSESSMENT: 1. Stable, postoperative day 1, from a left total knee arthroplasty. 2. Acute blood loss anemia. 3. History of diabetes mellitus type 2. 4. History of high blood pressure. PLAN: We are going to transfuse 2 units of packed red blood cells for acute blood loss anemia. We are also going to admit the patient to monitor her acute blood loss anemia. We will continue to monitor her as she works with physical therapy. Dictated by GUME Witt for Salazar Irvin MD cc: GUME Witt MD MTDD
[2018-09-17] MEDS: ASPIRIN PO SCH (09:16)
[2018-09-17] MEDS: COLACE PO SCH ×2 (09:17→21:54)
[2018-09-17] MEDS: GLUCOPHAGE XR PO SCH (09:17)
[2018-09-17] MEDS: NEURONTIN PO SCH ×3 (09:17→21:35)
[2018-09-17] MEDS: ACTOS PO SCH (09:17)
[2018-09-17] MEDS: CELEBREX PO SCH ×2 (09:17→21:53)
[2018-09-17] MEDS: PERIDEX MT SCH ×2 (09:17→21:54)
[2018-09-17] MEDS: PATIENT'S OWN MED SL SCH (09:18)
[2018-09-17] MEDS: NORVASC PO SCH (09:19)
[2018-09-17] MEDS: PRINZIDE 10/12.5MG PO SCH (09:20)
--- NOTE | 2018-09-17 20:56 | Diag Imaging Result Doc PS360 ---
EXAM: CHEST-PORTABLE INDICATION: REHAB PLACEMENT TECHNIQUE: One view COMPARISON: 07/09/2017 FINDINGS: The lungs are grossly clear. There is no discrete pleural fluid collection or pneumothorax. The cardiomediastinal silhouette and central vasculature are grossly unremarkable. IMPRESSION: No evidence of acute pathology by plain radiograph. Electronically signed by Arden Mcgowan 09/17/2018 8:54 PM
[2018-09-17] MEDS: CRESTOR PO SCH (21:54)
[2018-09-18] MEDS: TYLENOL PO SCH ×4 (03:42→21:59)
[2018-09-18] MEDS: ULTRAM PO SCH ×4 (03:42→22:00)
[2018-09-18] MEDS: PATIENT'S OWN MED SL SCH ×2 (03:44→08:33)
[2018-09-18 06:30] LABS: HEMOGLOBIN 7.7 g/dL (12.0-16.0)
[2018-09-18] MEDS: PRILOSEC PO SCH (06:58)
[2018-09-18] MEDS: OXY IR PO PRN ×4 (06:58→19:06)
[2018-09-18 07:14] LABS: HEMATOCRIT 25.2 % (37.0-47.0)
[2018-09-18] MEDS: COLACE PO SCH ×2 (08:07→21:59)
[2018-09-18] MEDS: ASPIRIN PO SCH (08:07)
[2018-09-18] MEDS: NEURONTIN PO SCH ×3 (08:08→19:07)
[2018-09-18] MEDS: PRINZIDE 10/12.5MG PO SCH ×2 (08:08→08:17)
[2018-09-18] MEDS: PERIDEX MT SCH ×2 (08:08→22:00)
[2018-09-18] MEDS: NORVASC PO SCH ×2 (08:08→08:16)
[2018-09-18] MEDS: ACTOS PO SCH (08:09)
[2018-09-18] MEDS: CELEBREX PO SCH ×2 (08:09→21:59)
[2018-09-18] MEDS: GLUCOPHAGE XR PO SCH (08:10)
[2018-09-18] MEDS: NS 1,000 ML IV SCH (15:55)
--- NOTE | 2018-09-18 18:01 | ORTHOPAEDICS PROGRESS NOTE ---
DATE: 09/18/2018 SUBJECTIVE: Ms. Gillespie is a 68-year-old female who is postoperative day #2 from a left total knee arthroplasty. She has no new complaints. OBJECTIVE: General: She is a well-developed, well-nourished female. She is alert, oriented, cooperative with exam. She is in no acute distress. Left Knee: Her left knee dressing is clean, dry and intact. Her left leg is grossly neurovascularly intact. LABORATORY: Her hemoglobin is 7.7, her hematocrit is 25.2. Physical therapy yesterday she walked 15 feet. ASSESSMENT: 1. Stable postoperative day #2 from a left total knee arthroplasty. 2. Acute blood loss anemia that is improving. 3. History of diabetes mellitus type 2. 4. History high blood pressure. PLAN: We are going to need continue to monitor her and continue to have her work with Physical Therapy. Hopefully she can be discharged to rehab facility tomorrow. Dictated by GUME Witt for Salazar Irvin MD cc: GUME Witt MD MTDD
[2018-09-18] MEDS: CRESTOR PO SCH (22:00)
[2018-09-19] MEDS: OXY IR PO PRN ×2 (00:10→06:03)
[2018-09-19] MEDS: PATIENT'S OWN MED SL SCH ×2 (00:11→08:13)
[2018-09-19] MEDS: ULTRAM PO SCH ×2 (03:00→08:15)
[2018-09-19] MEDS: TYLENOL PO SCH ×2 (06:04→08:10)
[2018-09-19] MEDS: PRILOSEC PO SCH (06:04)
[2018-09-19 07:26] VITALS: BP 117/55
[2018-09-19 07:27] LABS: HEMATOCRIT 24.1 % (37.0-47.0); HEMOGLOBIN 7.2 g/dL (12.0-16.0)
[2018-09-19] MEDS: ACTOS PO SCH (08:10)
[2018-09-19] MEDS: PRINZIDE 10/12.5MG PO SCH (08:10)
[2018-09-19] MEDS: NEURONTIN PO SCH (08:10)
[2018-09-19] MEDS: CELEBREX PO SCH (08:10)
[2018-09-19] MEDS: ASPIRIN PO SCH (08:11)
[2018-09-19] MEDS: COLACE PO SCH (08:11)
[2018-09-19] MEDS: PERIDEX MT SCH (08:11)
[2018-09-19] MEDS: NORVASC PO SCH (08:11)
[2018-09-19] MEDS: GLUCOPHAGE XR PO SCH (08:11)
--- NOTE | 2018-09-19 09:19 | DISCHARGE SUMMARY ---
ADMISSION DATE: 09/17/2018 DISCHARGE DATE: 09/19/2018 DISCHARGE DIAGNOSIS: Left knee degenerative joint disease, status post left total knee arthroplasty. DISCHARGE MEDICATIONS: See discharge medication list. DISPOSITION: The patient is discharged to rehab with instructions for total knee arthroplasty protocol. Instructed to return to see Dr. Irvin next . Instructed to return for any signs or symptoms of infection or deep venous thrombosis. HOSPITAL COURSE: On the day of admission, the patient underwent a left total knee arthroplasty. Her postoperative course [*] by therapy due to her back pain and large body habitus. She also had acute blood loss anemia, treated with transfusion. Her hemoglobin at discharge was 7.2, her hematocrit was 24.1, which is still low. She has chronic anemia as well. She is walking better with physical therapy. However, she lives alone and has stairs, and it would be difficult for her to manage. As far as patient safety concern, I think she needs to go to a rehab facility for at least a few weeks. At discharge, she is afebrile, tolerating a regular diet. Her wound is clean, dry, and intact without sign of infection. She is ambulating some with physical therapy. She is discharged to rehab in stable condition with instructions to follow up as described above. cc: Salazar Irvin MD
== END 2018-09-19 11:51 | DRG 470 ==
LOC: OR 09:43 → 4N 09:43
PROVIDERS: ADMIT Orthopaedic Surgery; ATTEND Orthopaedic Surgery
CPT/HCPCS: 36430; 71010; 71045; 80048; 81001; 82040; 82948; 83036; 85014; 85018; 85025; 85610; 85730; 86850; 86900; 86901; 86920; 87449; 88305; 88311; 93005; 93010; 94761; 94799; 97110; 97116; 97162; 97530; A9270; C9290; J0131; J0690; J1100; J1170; J1885; J2250; J2274; J2275; J2405; J3010; J3370; J7030; J7120; P9016; Q9974; S0020; XXXXX